=== PATIENT | male | born 1975 | race Caucasian/White ===

== ENCOUNTER 2016-07-02 13:47 | Emergency (ER) | payer OTHER ==
[~2016-07-02] VITALS: Ht 170.2 cm; Wt 77.3 kg
[~2016-07-02 13:47] MED LIST: TRAZ-144 PO
[2016-07-02] MEDS ORDERED: SODIUM CHLORIDE 0.9% 1,000 ML IV ONE ×2 (14:30→17:45)
[2016-07-02] MEDS ORDERED: DIAZEPAM 5 MG/ML 2 ML SYRINGE IVP ONE (14:30)
[2016-07-02 18:08] VITALS: BP 139/76
== END 2016-07-02 19:19 | disposition home or self-care (01) ==
LOC: EDBD 13:52 → EMS 13:52
DX: R41.82 Altered mental status, unspecified (principal); F41.9 Anxiety disorder, unspecified; F12.10 Cannabis abuse, uncomplicated
CPT/HCPCS: 80307; 82962; 93005; 96361; 96374; 99285; J1885; J7030